=== PATIENT | male | born 1985 | race African-American/Black ===

== ENCOUNTER 2019-06-29 18:35 | Observation (INO) ==
[2019-06-29 19:15] LABS: URINE SOURCE CLEAN CATCH
[2019-06-29 19:21] LABS: BILIRUBIN URINE NEGATIVE (NEGATIVE); BLOOD URINE NEGATIVE (NEGATIVE); COLOR STRAW; GLUCOSE URINE NEGATIVE (NEGATIVE); KETONE URINE NEGATIVE (NEGATIVE); LEUKOCYTES URINE NEGATIVE (NEGATIVE); NITRITE URINE NEGATIVE (NEGATIVE); PH URINE 6.5; PROTEIN URINE NEGATIVE (NEGATIVE); SP GRAVITY URINE 1.011; TURBIDITY URINE CLEAR (CLEAR); UROBILINOGEN URINE NORMAL (NORMAL)
[2019-06-29 19:22] LABS: BASO# 0.01 X1000 (0.0-0.2); BASO% 0.2 % (0.0-0.8); EOS# 0.12 X1000 (0.0-0.7); EOS% 2.2 % (0.0-10.0); IMM GRAN# 0.01 X1000 (0.0-0.04); IMM GRAN% 0.2 % (0.0-0.5); LYMPH# 2.77 X1000 (1.2-3.4); LYMPH% 50.1 % (20.5-51.1); MCHC 31.9 g/dL (33-37); MCV 78.3 FL (81-99); MONO# 0.51 X1000 (0.11-0.59); MONO% 9.2 % (1.7-9.3); MPV 10.1 FL (7.4-10.4); NEUT# 2.11 X1000 (1.4-6.5); NEUT% 38.1 % (42.2-75.2); PLT 320 X1000 (130-400); RDW 14.2 % (11.5-14.5); WBC 5.53 X1000 (4.8-10.8)
[2019-06-29 19:23] LABS: UR EPITHELIAL CELLS <10 /HPF (<10); URINE BACTERIA NEGATIVE /HPF; URINE RBC <10 /HPF (<10); URINE WBC <10 /HPF (<10)
[2019-06-29 19:32] LABS: INR 0.86; PROTIME 12.1 Seconds (11.0-16.0)
[2019-06-29 19:33] LABS: PTT 29.8 Seconds (22.3-41.8)
[2019-06-29 19:44] LABS: UR AMPHETAMINES QUAL NONE DETECTED (NONE DETECT); UR BARBITUATES QUAL NONE DETECTED (NONE DETECT); UR BENZODIAZEPIN QUAL NONE DETECTED (NONE DETECT); UR CANNABINOIDS QUAL NONE DETECTED (NONE DETECT); UR COCAINE QUAL NONE DETECTED (NONE DETECT); UR METHADONE QUAL NONE DETECTED (NONE DETECT); UR METHAMPHETAMINE QUAL NONE DETECTED (NONE DETECT); UR OPIATES QUAL NONE DETECTED (NONE DETECT); UR OXYCODONE QUAL NONE DETECTED (NONE DETECT); UR PCP QUAL NONE DETECTED (NONE DETECT); UR PROPOXYPHENE QUAL NONE DETECTED (NONE DETECT); UR TCA QUAL NONE DETECTED (NONE DETECT)
[2019-06-29 19:45] LABS: AGAP 15; ALBUMIN 4.8 g/dL (3.5-5.0); ALKALINE PHOSPHATASE 55 U/L (32-122); BUN 12 mg/dL (8-22); CALCIUM 10.2 mg/dL (8.8-10.2); CHLORIDE 97 mmol/L (98-107); COSMO 280; CREATININE 1.3 mg/dL (0.7-1.2); ESTIMATED GFR > 60; GLUCOSE 112 mg/dL (70-104); GOT 35 U/L (10-34); GPT 40 U/L (10-44); SODIUM 140 mmol/L (136-145); TCO2 28 mmol/L (25-35)
--- NOTE | 2019-06-29 19:50 | Diag Imaging Result Doc PS360 ---
EXAM: CT HEAD W/O CONTRAST HISTORY: HTN, R sided tingling TECHNIQUE: CT head without contrast COMPARISON: None. FINDINGS: No parenchymal hemorrhage. No epidural or subdural hematoma. No subarachnoid hemorrhage. No mass identified on this noncontrasted exam. No hydrocephalus. No sinus opacification. IMPRESSION: No hemorrhage. Negative brain CT without contrast. This exam was performed using automated exposure control, adjustment of mA or kV according to patient size, and/or use of iterative reconstruction technique. Electronically signed by Murtaza Vallecillo 06/29/2019 7:48 PM
--- NOTE | 2019-06-29 20:15 | PROVIDER DOCUMENTATION ---
This chart was entered by Jono Rhoades Scribe, acting as scribe for Mary Grover CRNP. HPI-Cardiac General - General Chief Complaint: B/P Problems Stated Complaint: B/P ISSUES Time Seen by Provider: 06/29/19 18:42 Source: patient Allergies/Adverse Reactions: Patient Allergies Allergy/AdvReac Type Severity Reaction Status Date / Time No Known Allergies Allergy Verified 06/29/19 18:40 Home Medications: Home Medication List Medication Instructions Recorded Confirmed Last Taken Type Lisinopril 1 tab PO DAILY 06/29/19 06/29/19 Unknown History Metformin HCl 1 tab PO BID 06/29/19 06/29/19 Unknown History - History of Present Illness-Cardiac Nature of Presenting Problem: Pt is a 34 y/o M presents to the ED c/o of high blood pressure for a couple of days. He says his symptoms are tingling in the right side of face and arm, right sided headache especially above is right eye, and some right neck and right back neck pain. He does report taking his HTN med and DM medicine as prescribed. He also reports working out and denies taking a prework out. Location: reports: other (right arm and fece tingling) Quality of Pain: reports: other (tingling) Severity in ED: moderate Onset/Duration: 2 days ago Timing: still present Context/Activities at Onset: reports: none Modifying Factors: improves with: nothing Palpitation Quality: N/A History of arrythmia: reports: none Recent use of:: reports: no stimulants Nitro Today/Relief: reports: no nitro taken today Aspirin Treatment Today: reports: no aspirin today Prior Chest Pain/Cardiac Workup: reports: no prior chest pain, no prior cardiac workup Associated Symptoms: reports: headache. denies: dizziness, edema, fatigue, fever/chills, nausea, shortness of breath, syncope, vomiting, weakness Similar Symptoms Previously?: No Recently Seen Here or By Another Healthcare Provider: No Review of Systems - Adult - REVIEW OF SYSTEMS - ADULT Constitutional: denies: chills, fever Eyes: reports: no symptoms reported Ears, Nose, Mouth & Throat: reports: no symptoms reported Cardiovascular: denies: chest pain, edema, palpitations, PND Respiratory: denies: cough, shortness of breath, wheezing Gastrointestinal: denies: abdominal pain, nausea, vomiting Genitourinary: reports: no symptoms reported Musculoskeletal: denies: back pain, joint pain, neck pain Integumentary: reports: no symptoms reported Neurological: reports: headache/migraines, other (right sided tingling on arm and neck). denies: dizziness/vertigo, loss of balance, numbness, slurred speech Psychiatric: denies: alcohol/drug dependence, depression Endocrine: reports: no symptoms reported Hematologic/Lymphatic: reports: no symptoms reported Allergic/Immunologic: reports: no symptoms reported All Other Systems: Reviewed and Negative Past History - Adult - PAST MEDICAL HISTORY-ADULT Review of Records: reports: Old Records Reviewed, Nursing Assessment Review, Medications Reviewed - SOCIAL HISTORY Smoking: non-smoker Substance Use: none/never Living Situation: family Physical Exam-General - PHYSICAL EXAM-ADULT Initial Vital Signs Reviewed: Yes - CONSTITUTIONAL General Appearance: appears well, alert, no apparent distress - EYES Eyes: PERRL/EOMI, pink conjunctivae - HEAD, EARS, NOSE, MOUTH & THROAT HENMT: moist mucous membranes, normal ENT inspection, pharynx normal - NECK Neck: non-tender, full range of motion, supple, normal inspection - RESPIRATORY Respiratory: lungs clear, normal breath sounds, no pleuratic chest pain, no respiratory distress, no accessory muscle use - CARDIOVASCULAR Cardiovascular: normal peripheral pulses, regular rate, rhythm - GASTROINTESTINAL (ABDOMEN) Abdominal Exam: normal bowel sounds, non tender, soft - MUSCULOSKELETAL Back Exam: normal inspection, no CVA tenderness, no vertebral tenderness Extremity: normal range of motion, non-tender, normal gait, normal inspection, no pedal edema - SKIN Integumentary: normal color, normal turgor, warm/dry - NEUROLOGIC Neurologic: virtual customer assistant II-XII nml as tested, grossly normal, no motor/sensory deficits. negative: aphasia, facial droop, focal weakness, motor weakness - PSYCHIATRIC Psych/Mental Status: normal mood/affect, normal thought content, normal thought process Progress - PLAN OF CARE/RESULTS Progress/Plan/Lab Results: Vital Signs - 8 hr 06/29/19 18:38 06/29/19 19:42 Temperature 98.1 F Pulse Rate 81 63 Respiratory Rate 18 18 Blood Pressure 160/100 142/91 O2 Sat by Pulse Oximetry 99 97 Laboratory Results - last 24 hr 06/29/19 06/29/19 06/29/19 19:05 19:05 19:05 WBC 5.53 RBC 6.00 Hgb 15.0 Hct 47.0 MCV 78.3 L MCH 25.0 L MCHC 31.9 L RDW Std Deviation 14.2 Plt Count 320 MPV 10.1 Immature Gran % (Auto) 0.2 Neut % (Auto) 38.1 L Lymph % (Auto) 50.1 [place] % (Auto) 9.2 Eos % (Auto) 2.2 Baso % (Auto) 0.2 Immature Gran # (Auto) 0.01 Neut # (Auto) 2.11 Lymph # (Auto) 2.77 [place] # (Auto) 0.51 Eos # (Auto) 0.12 Baso # (Auto) 0.01 PT 12.1 INR 0.86 PTT (Actin FS) 29.8 Sodium 140 Potassium 4.0 Chloride 97 L Carbon Dioxide 28 Anion Gap 15 BUN 12 Creatinine 1.3 H Estimated GFR/1.73 m2 > 60 BUN/Creatinine Ratio 9 Glucose 112 H Calculated Osmolality 280 Calcium 10.2 Total Bilirubin 0.20 AST 35 H ALT 40 Alkaline Phosphatase 55 Troponin T High Sens Total Protein 8.0 Albumin 4.8 Globulin 3.0 Albumin/Globulin Ratio 2.0 Urine Source Urine Color Urine Turbidity Urine pH Ur Specific [place] Urine Protein Ur Glucose (Stick) Ur Ketones (Stick) Urine Blood Urine Nitrite Urine Bilirubin Urobilinogen Dipstick Urine Leukocytes Urine WBC (Auto) Urine RBC (Auto) U Epithel Cells (Auto) Urine Bacteria (Auto) Urine Opiates Screen Ur Oxycodone Screen Urine Methadone Screen U Propoxyphene Qual Ur Barbituates Screen Ur Tricyclics Screen Ur Phencyclidine Scrn Ur Amphetamines Screen U Methamphetamines Scrn U Benzodiazepines Scrn Urine Cocaine Screen U Cannabinoids Screen 06/29/19 06/29/19 06/29/19 19:05 19:05 19:05 WBC RBC Hgb Hct MCV MCH MCHC RDW Std Deviation Plt Count MPV Immature Gran % (Auto) Neut % (Auto) Lymph % (Auto) [place] % (Auto) Eos % (Auto) Baso % (Auto) Immature Gran # (Auto) Neut # (Auto) Lymph # (Auto) [place] # (Auto) Eos # (Auto) Baso # (Auto) PT INR PTT (Actin FS) Sodium Potassium Chloride Carbon Dioxide Anion Gap BUN Creatinine Estimated GFR/1.73 m2 BUN/Creatinine Ratio Glucose Calculated Osmolality Calcium Total Bilirubin AST ALT Alkaline Phosphatase Troponin T High Sens < 6 Total Protein Albumin Globulin Albumin/Globulin Ratio Urine Source CLEAN CATCH Urine Color STRAW Urine Turbidity CLEAR Urine pH 6.5 Ur Specific [place] 1.011 Urine Protein NEGATIVE Ur Glucose (Stick) NEGATIVE Ur Ketones (Stick) NEGATIVE Urine Blood NEGATIVE Urine Nitrite NEGATIVE Urine Bilirubin NEGATIVE Urobilinogen Dipstick NORMAL Urine Leukocytes NEGATIVE Urine WBC (Auto) <10 Urine RBC (Auto) <10 U Epithel Cells (Auto) <10 Urine Bacteria (Auto) NEGATIVE Urine Opiates Screen NONE DETECTED Ur Oxycodone Screen NONE DETECTED Urine Methadone Screen NONE DETECTED U Propoxyphene Qual NONE DETECTED Ur Barbituates Screen NONE DETECTED Ur Tricyclics Screen NONE DETECTED Ur Phencyclidine Scrn NONE DETECTED Ur Amphetamines Screen NONE DETECTED U Methamphetamines Scrn NONE DETECTED U Benzodiazepines Scrn NONE DETECTED Urine Cocaine Screen NONE DETECTED U Cannabinoids Screen NONE DETECTED Orders Category Date Time Status FSBS [Finger Stick Blood Sugar (ED)] DIRECTED Care 06/29/19 18:[address] HEAD W/O CONTRAST [CT] Stat Exams 06/29/19 18:42 Completed CBC WITH ELECTRONIC DIFF [HEME] Stat Lab 06/29/19 19:05 Completed COMPREHENSIVE METABOLIC PANEL [CHEM] Stat Lab 06/29/19 19:05 Completed PT [PROTIME WITH INR] [COAG] Stat Lab 06/29/19 19:05 Completed PTT [COAG] Stat Lab 06/29/19 19:05 Completed TROPONIN T HIGH SENSITIVITY Stat Lab 06/29/19 19:05 Completed UA NIMS W/REFLEX CULT [URINALYSIS] Stat Lab 06/29/19 19:05 Completed URINE DRUG SCREEN PL Stat Lab 06/29/19 19:05 Completed EKG [EKG] Stat Ther 06/29/19 18:42 Ordered Result Diagrams: 06/29/19 19:05 06/29/19 19:05 - EKG 1 Time of EKG reading by physician:: 18:44 EKG Read and Signed by:: Tomas Monroe EKG Interpretation (*Must complete 3 of following elements*): Abnormal Rate: 79 Rhythm: NSR [place]: right Comments: Borderline - CT/MRI 1 CT Study: Head Impression: See EMR Report (EXAM: CT HEAD W/O CONTRAST HISTORY: HTN, R sided tingling TECHNIQUE: CT head without contrast COMPARISON: None. FINDINGS: No parenchymal hemorrhage. No epidural or subdural hematoma. No subarachnoid hemorrhage. No mass identified on this noncontrasted exam. No hydrocephalus. No sinus opacification. IMPRESSION: No hemorrhage. Negative brain CT without contrast. This exam was performed using automated exposure control, adjustment of mA or kV according to patient size, and/or use of iterative reconstruction technique. Electronically signed by Murtaza Vallecillo 06/29/2019 7:48 PM 06/29/191947 Interpreting Physician: Murtaza Vallecillo MD Dictated Date/Time: 06/29/191945 cc: Mary Grover; Kiran Tejada) Comparison with other Films: no prior study - CONSULTS/PCP/HOSPITALIST Notification #1 *Consult/PCP/Hospitalist*: Dr. Maldonado Time Discussed: 20:13 Consult Disposition: Admit Departure - Departure Date of Disposition Decision: 06/29/19 Time of Disposition Decision: 20:13 DIAGNOSIS: Arm paresthesia, right, Facial paresthesia Disposition: HOME 01 Certified Medical Emergency: Emergent Condition: Stable Referrals and Follow-Ups: Kiran Tejada CRNP [Primary Care Provider] - - Critical Care Note This patient required my direct & personal management of CC.: No Attestation - Physician/ MANUEL Attestation Patient care was provided by Advanced Practice Provider:: Yes Advanced Practice Provider:: Mary Grover Advanced Practice Provider documentation review:: The Mid-level provider documentation, treatment plan and medical decision making was reviewed by the physician who agrees with all treatment and medical decision making by the P. The physician spent face to face time with patient:: No Advanced Practice Provider documentation review:: Supervising physician onsite and consulted in the evaluation and care of this patient. The physician did not have a face to face encounter with the patient. This chart was documented by the indicated scribe, (Jono Rhoades Scribe) and accurately reflects the services I performed and decisions made by me, Mary Grover CRNP, as attested by the provider's signature.
[2019-06-29] MEDS ORDERED: TYLENOL PO PRN (20:16)
[2019-06-29 21:49] LABS: HEMOGLOBIN A1C 6.8 % (4.8-6.0)
--- NOTE | 2019-06-30 01:42 | EKG Report ---
Test Performed on : 06/29/2019 6:44:54 PM Test Reason : CP Blood Pressure : / mmHG Vent. Rate : 079 BPM Atrial Rate : 079 BPM P-R Int : 162 ms QRS Dur : 106 ms QT Int : 384 ms P-R-T Axes : 055 096 068 degrees QTc Int : 440 ms Normal sinus rhythm. Rightward axis Borderline ECG No previous ECGs available Unconfirmed Result
[2019-06-30] MEDS ORDERED: GLUCOPHAGE PO SCH ×2 (08:00→10:45)
[2019-06-30] MEDS ORDERED: ZOFRAN IV PRN (08:33)
[2019-06-30] MEDS ORDERED: PRINIVIL PO SCH ×3 (09:00)
[2019-06-30 09:11] LABS: HEMATOCRIT 47.7 % (42.0-52.0); HEMOGLOBIN 15.1 g/dL (14.0-18.0); MCH 24.7 PG (27-31); MCHC 31.7 g/dL (33-37); MCV 77.9 FL (81-99); RBC 6.12 XMIL (4.7-6.1); RDW 14.2 % (11.5-14.5); WBC 3.86 X1000 (4.8-10.8)
[2019-06-30 09:24] LABS: AGAP 11; BUN 12 mg/dL (8-22); CALCIUM 9.8 mg/dL (8.8-10.2); CHLORIDE 98 mmol/L (98-107); COSMO 279; ESTIMATED GFR > 60; GLUCOSE 123 mg/dL (70-104); IRON SATURATION 27 %; MAGNESIUM 1.9 mg/dL (1.5-2.7); POTASSIUM 4.1 mmol/L (3.5-5.1); SODIUM 139 mmol/L (136-145); TCO2 30 mmol/L (25-35); TIBC 280 ug/dL; TOTAL IRON 75 ug/dL (53-167); UNBOUND IRON 205 ug/dL (112-346)
[2019-06-30 09:34] LABS: FREE T4 1.22 ng/dL (0.93-1.70); TSH 2.55 uIUmL (0.27-4.20)
--- NOTE | 2019-06-30 12:05 | HISTORY AND PHYSICAL ---
PRIMARY CARE PROVIDER: Dr. Kiran Tejada. CHIEF COMPLAINT: Right-sided facial and arm tingling and paresthesias. HISTORY OF PRESENT ILLNESS: Mr. Woody Eddy is a 34-year-old, male with a medical history of hypertension and diabetes, who presents with complaints of headache above the right eye, with tingling in the right forearm and the right side of his face. No other neurological assessment was abnormal. He did have high blood pressure on presentation of 160/100. Once it was controlled, his symptoms resolved. Will continue to do a workup to evaluate any other causes. PAST MEDICAL HISTORY: 1. Hypertension. 2. Diabetes mellitus type 2. PAST SURGICAL HISTORY: Right inguinal hernia repair. SOCIAL HISTORY: Denies tobacco, alcohol, or illicit drug use. He is with kids. He works on the [employer]. FAMILY HISTORY: Mother had hypertension. Father had stroke, diabetes, and heart attack. He had a brother that had an aortic aneurysm at age 42. ALLERGIES: No known drug allergies. HOME MEDICATIONS: 1. Lisinopril 20 mg p.o. daily. 2. Metformin 500 mg p.o. twice daily. REVIEW OF SYSTEMS: A 14-point review of systems are complete and all are negative, except for those mentioned in the above HPI. PHYSICAL EXAMINATION: VITAL SIGNS: Temperature 98.2, heart rate 92, respiratory rate 20, blood pressure 130/78, O2 saturation 100% on room air. GENERAL: Mr. Woody Eddy is a 34-year-old, male. He is in no acute distress. He is able to answer questions appropriately. HEENT: Atraumatic, normocephalic. Pupils equal, round, reactive to light. Extraocular movements intact. Mucous membranes are moist. NECK: Trachea midline. CARDIOVASCULAR: S1, S2. Regular rate and rhythm. No rubs, gallops, murmurs. No lower extremity edema. There are +2 dorsalis and radial pulses. Negative JVD or carotid bruits. PULMONARY: Clear to auscultate. Bilateral breath sounds. No accessory muscle use or work of breathing noted. GI: Soft, nontender, nondistended. Positive bowel sounds x4. EXTREMITIES: Moves all extremities equally. Full range of motion. NEUROLOGIC: A and O x3. Follows commands. Sensory is intact. SKIN: Warm, dry, intact. LABORATORY DATA: White blood cells 3000, hemoglobin 15, hematocrit 47, platelet count 293,000. Sodium 139, potassium 4.1, BUN 12, creatinine is 1.0, glucose 123. Hemoglobin A1c is 6.8. Calcium 9.8. Magnesium 1.9. Iron is 75, total iron binding capacity is 280, saturation is 27, unsaturated is 205, ferritin is pending. Bilirubin 0.20, AST 35, ALT 40, albumin 4.8. B12 is 608, TSH is 2.55, free T4 is 1.22. Urinalysis negative. Urine drug screen negative. IMAGING: Head CT negative for hemorrhage, no acute findings. EKG: Normal sinus rhythm, rate 79, QTc is 440. ASSESSMENT AND PLAN: 1. Right frontal headache with right tingling in the forearm and the face, resolved after elevated blood pressure came back down. He has a brother who has had a history of an aortic aneurysm, but will go ahead, given symptoms were one-sided, and do a CTA of the brain and neck to rule out any other causes, such as arteriovenous malformation or aneurysm. 2. Hypertension. Continue antihypertensive, which is lisinopril. 3. Diabetes mellitus type 2. Hemoglobin A1c is 6.8. Will do pattern blood glucoses, sliding scale insulin. Continue the metformin. 4. Deep venous thrombosis prophylaxis. Sequential compression devices. Dictated by DUNIA Landrum for Lai Layne MD cc: DUNIA Landrum MD
[2019-06-30] MEDS: HUMULIN R (PARKWAY) SUBQ SCH ×2 (12:30→17:05)
--- NOTE | 2019-06-30 14:47 | Diag Imaging Result Doc PS360 ---
EXAM: CT ANGIOGRAM HEAD/NECK 06/30/2019 HISTORY: right parasthesia; fam h/o aneurysms TECHNIQUE: This exam was performed using automated exposure control, adjustment of mA or kV according to patient size, and/or use of iterative reconstruction technique. COMMENT: 3-D MIPS were performed. Contrast opacification of the arterial tree is somewhat suboptimal. There is no evidence of significant stenosis in the common or cervical internal carotid arteries. The vertebral and basilar arteries are patent. The intracerebral internal carotid arteries are also patent without evidence of aneurysm. The middle and anterior cerebral arteries are patent. The posterior cerebral arteries are patent. Otherwise, there is no evidence of abnormal contrast enhancement. IMPRESSION: No evidence of aneurysm or significant stenosis. Electronically signed by Terry Narvaez 06/30/2019 2:45 PM
[2019-06-30 15:08] LABS: FERRITIN 173 ng/mL (30-400)
--- NOTE | 2019-06-30 15:45 | Vascular Study Report ---
EXAM: Carotid Ultrasound 06/29/2019 HISTORY: parasthesias TECHNIQUE: Carotid Doppler ultrasound COMMENT: There is no evidence of hemodynamically state significant stenosis on either side and there is antegrade flow in both vertebral arteries. IMPRESSION: Normal carotid Doppler ultrasound. Electronically signed by Terry Narvaez 06/30/2019 3:42 PM
--- NOTE | 2019-06-30 16:15 | DISCHARGE SUMMARY ---
ADMISSION DATE: 06/29/2019 DISCHARGE DATE: 06/30/2019 ADMISSION AND DISCHARGE DIAGNOSES: 1. Right frontal headache with right forearm tingling and facial tingling. 2. Hypertension. 3. Diabetes mellitus type 2. CONSULTATIONS: None. SURGERIES AND PROCEDURES: None. HOSPITAL COURSE: Mr. Woody Eddy is a 34-year-old male with a medical history of hypertension, diabetes mellitus type 2, who came in with complaints of right facial tingling, right forearm tingling, and right frontal headache, right above the right eye. These symptoms resolved once his blood pressure came back down. His very 1st blood pressure that was taken was 160/100. Once the blood pressure dropped, the symptoms resolved. He had a carotid ultrasound. He also had a head CT and a head CTA and neck CTA, and all were negative for any acute findings. He is advised to continue taking his lisinopril as prescribed and to return if any symptoms begin again. DISCHARGE VITAL SIGNS: Temperature 98.2 degrees, heart rate 92, respiratory rate 20, blood pressure 130/78. O2 saturation 100% on room air. DISCHARGE LAB DATA: White blood cells 3000, hemoglobin 15, hematocrit 47, platelet count 293,000. Sodium 139, potassium 4.1, BUN 12, creatinine is 1.0, glucose 123. Hemoglobin A1c is 6.8, calcium 9.8, magnesium 1.9. Iron is 75. TSH 2.55. Free T4 was 1.22. Urinalysis was normal, negative for drugs. No micro was done. IMAGING: Head CT negative for acute findings. Head and neck CTA: No evidence of aneurysm or significant stenosis. Carotid ultrasound: Official results are not up yet, but they are supposed to be negative. EKG: Normal sinus rhythm, rate 79, QTc 440. DISCHARGE MEDICATIONS: 1. Lisinopril 20 mg p.o. daily. 2. Metformin 500 mg p.o. twice daily. DISCHARGE DIET: Diabetic. DISCHARGE ACTIVITY: As tolerated. DISCHARGE PHYSICIAN FOLLOW-UP: Kiran Tejada nurse practitioner. DISCHARGE INSTRUCTIONS: If symptoms return of the right frontal headache, the numbness, the tingling on the right side, please seek medical attention and check your blood pressure. Take your blood pressure medications as prescribed. DISCHARGE DISPOSITION: Home. Dictated by DUNIA Landrum for Lai Layne MD cc: DUNIA Landrum MD
[2019-06-30 16:21] VITALS: BP 122/68
--- NOTE | 2019-06-30 21:55 | PROGRESS NOTE ---
DATE: 06/30/2019 Patient presented to the hospital with elevated blood pressures, 160s/100s. He was having some right hand numbness. We are going to admit him to the hospital and will follow. Certainly, this most likely his blood pressure related. Symptoms are improving currently. cc: Lai Layne MD
--- NOTE | 2019-06-30 22:01 | DISCHARGE SUMMARY ---
ADMISSION DATE: 06/29/2019 DISCHARGE DATE: 06/30/2019 DISCHARGE DIAGNOSES: 1. Transient ischemic attack, resolved. 2. Hypertensive urgency, resolved. 3. Hypertension. 4. Diabetes. 5. High cholesterol. CONSULTATIONS: None. PROCEDURES: None. BRIEF HOSPITAL COURSE: The patient is a very pleasant 34-year-old male who presented to the hospital with elevated blood pressures for a couple of days with numbness and tingling in his right arm with right-sided headache. Does have a history of hypertension and diabetes. After much discussion, he also has history of high cholesterol, although has not been taking cholesterol medication. The patient was admitted to the hospital. Thankfully, all of his symptoms resolved. On discharge blood pressure is 118/72. Blood pressures are stable, heart rate 59. He is having no further weakness. No headaches. He did have a carotid that was normal as well as CT that was normal. Echo was reported normal as well. DISPOSITION: Patient will be discharged home. Discussed with him the importance of taking cholesterol medication. Prescription was written. He will follow up outpatient with his primary care, Dr. Kiran Tejada, if symptoms worsen or return. TIME SPENT: Greater than 30 minutes was spent in total care. cc: Lai Layne MD
--- NOTE | 2019-07-01 12:12 | ECHO REPORT ---
ORDER DATE: 06/30/2019 MEASUREMENTS: Septal thickness 1.0, left ventricular internal diameter in diastole 5.0, posterior wall thickness 1.0, aortic root 3.7, left atrium 2.8. SUMMARY: 1. Fair quality study. Intravenous echocontrast agent, Optison, was utilized to enhance endocardial definition. 2. Aortic valve is trileaflet and opens normally on 2-dimensional images. The peak gradient across the aortic valve is less than 5 mmHg. Mitral, tricuspid, and pulmonic valves are without evidence of structural abnormality with trace tricuspid regurgitation and mild pulmonic insufficiency. The aortic root is normal in size. 3. Normal left ventricular dimensions demonstrated. The estimated left ventricular ejection fraction appears to be at least 60%. No regional wall motion abnormalities are evident. The left atrium, right atrium, and right ventricle are normal in size with normal right ventricular systolic function. 4. No pericardial effusion. 5. Appearance of inferior vena cava suggests normal central venous pressure. cc: MD Lai Araiza MD
== END 2019-06-30 16:22 | disposition home or self-care (01) ==
LOC: P.ED 18:35 → P.MEDSURG 18:35 → SUATTDRO 18:36
PROVIDERS: ATTEND Family Medicine